=== PATIENT | female | born 1965 | race American Indian/Alaskan Native ===

== ENCOUNTER 2017-08-16 17:14 | Emergency (ER) | payer OTHER ==
[2017-08-16] MEDS ORDERED: Dextrose 50% SYRINGE Inj (50 ml) IVP STA (17:15)
--- NOTE | 2017-08-16 17:24 | C.PDOC ---
History Of Present Illness 51 year old female, with a history of Diabetes, presents to the ED for evaluation of hyperglycemia. Patient states she has a history of "sugars that go high and low." Patient is compliant with DM medications and has been eating "normal." Patient denies any recent illness or other complaints at this time. HYPOGLY. PS HO "SUGARS THAT GO HI AND LOW". COMPLIANT W DM MEDS, EATING "NORMAL ". 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 NEG Time Seen by Provider: 08/16/17 17:17 History Per: Patient History/Exam Limitations: no limitations Onset/Duration Of Symptoms: Hrs Current Symptoms Are (Timing): Still Present Current Diabetic Medications: Insulin Treatment Prior To Provider Evaluation: None Recent travel outside of the [place]: No Past Medical History Reviewed: Historical Data, Nursing Documentation, Vital Signs Vital Signs: Last Vital Signs Temp 97.7 F 08/16/17 17:29 Pulse 87 08/16/17 17:29 Resp 16 08/16/17 17:29 BP 114/64 08/16/17 17:29 Pulse Ox 100 08/16/17 17:29 Family History: States: Unknown Family Hx Review Of Systems Constitutional: Positive for: Other (hypoglycemia ). Negative for: Fever, Chills Cardiovascular: Negative for: Chest Pain, Palpitations Respiratory: Negative for: Cough, Shortness of Breath Gastrointestinal: Negative for: Nausea, Vomiting, Abdominal Pain, Diarrhea Neurological: Negative for: Weakness, Numbness Physical Exam - Physical Exam Appears: Non-toxic, No Acute Distress, Other (Exam is status post D50 ) Skin: Warm, Dry, No Rash Head: Atraumatic, Normacephalic, No Tenderness Eye(s): bilateral: Normal Inspection, PERRL, EOMI Oral Mucosa: Moist Neck: Supple Chest: Symmetrical, No Deformity Cardiovascular: Rhythm Regular, No Murmur Respiratory: No Rales, No Rhonchi, No Wheezing, Other (clear to auscultation bilaterally ) Gastrointestinal/Abdominal: Soft, No Tenderness, No Distention, No Guarding, No Rebound Extremity: Normal ROM, No Tenderness Neurological/Psych: Oriented x3, Other (no neuro focal deficits ) ED Course And Treatment Progress Note: Patient was given Dextrose 50%. Reevaluation Time: 18:21 Reassessment Condition: Improved (NO RECUR SX SINCE PRIOR EVAL. TOLERATING PO WO DIFF. DC) Disposition Counseled Patient/Family Regarding: Studies Performed, Diagnosis, Need For Followup - Disposition Referrals: YOUR,PMD [Other] Disposition: HOME/ ROUTINE Disposition Time: 18:21 Condition: IMPROVED Instructions: Diabetic Hypoglycemia (ED) - Clinical Impression Clinical Impression: Hypoglycemia - Scribe Statement The provider has reviewed the documentation as recorded by the Scribe Taya Dan All medical record entries made by the Scribe were at my direction and personally dictated by me. I have reviewed the chart and agree that the record accurately reflects my personal performance of the history, physical exam, medical decision making, and the department course for this patient. I have also personally directed, reviewed, and agree with the discharge instructions and disposition.
[2017-08-16 17:30] VITALS: O2SAT 100
[2017-08-16 18:24] VITALS: BP 131/80; PULSE 77; RESP 18
[2017-08-16 18:30] VITALS: TEMP 98.2
== END 2017-08-16 18:55 | disposition home or self-care (01) ==
LOC: C.ER 17:14
DX: E11.649 Type 2 diabetes mellitus with hypoglycemia without coma (principal)